=== PATIENT | female | born 1940 | race Caucasian/White ===

== ENCOUNTER 2016-09-17 12:17 | Observation (INO) | payer MEDICARE, OTHER ==
[~2016-09-17 12:17] MED LIST: BABY ASPIRIN81 MG; CALCIUM600 MG; DARVOCET-N 1001 TAB; HYDROCHLOROTH12.5 M1; INDOMETHACIN50 M1 PO; LOTENSIN40 M1 PO; MOBIC7.5 MG; MULTIVITAMIN1 TAB; NORVASC5 MG; TRAMADOL HCL50 M2 PO; TRAMADOL HCL50 MG; VITAMIN C1000 MG; ZOCOR20 MG
[2016-09-17] MEDS ORDERED: NORVASC5 M2 PO (12:40)
[2016-09-17] MEDS ORDERED: ALLOPURINOL300 M1 PO (12:40)
[2016-09-17] MEDS ORDERED: HYDROCHLOROTHIA25 M1 PO (12:40)
[2016-09-17] MEDS ORDERED: FLONASE ALLERG9.9 ML (12:41)
[2016-09-17 13:00] LABS: BASO % 0.2 % (0-2); HCT-HEMATOCRIT 40.9 % (34.0-49.0); HGB-HEMOGLOBIN 14.1 gm/dl (12.0-15.5); IMMATURE GRANULOCYTES ABSOLUTE 0.05 tho/cmm (0-0.03); IMMATURE GRANULOCYTES PERCENT 0.4 % (0-0.3); LYMPH % 8.2 % (20-45); LYMPH ABSOLUTE COUNT 1.1 tho/cmm (0.8-4.5); MCHC MEAN CORPUSCULAR HGB CONC 34.5 % (32.0-36.0); MCV (MEAN CELL VOLUME) 95.8 fl (82.0-96.0); MEAN PLATELET VOLUME 8.9 cmc (9.4-12.4); MONO % 9.4 % (0-12); MONOCYTE ABSOLUTE COUNT 1.2 tho/cmm (0.0-1.2); NEUTROPHIL ABSOLUTE COUNT 10.8 tho/cmm (1.6-8.0); NEUTROPHIL-AUTOMATED 10.8 tho/cmm (1.6-8.0); NEUTROPHILS % 81.8 % (40-80); PLATELET COUNT 410 tho/cmm (150-450); RED BLOOD COUNT 4.27 mil/cmm (4.00-5.20); WHITE BLOOD COUNT 13.2 tho/cmm (4.0-10.0)
[2016-09-17 13:15] LABS: ANION GAP 13 mmol/L (0-20); BLOOD UREA NITROGEN 13 mg/dl (6-24); CALCIUM 9.6 mg/dl (8.5-10.5); CARBON DIOXIDE-VENOUS 29 mmol/L (22-32); CHLORIDE 93 mmol/l (96-110); CREATININE 0.88 mg/dl (0.50-1.10); GLUCOSE 131 mg/dL (70-110); SODIUM 131 mmol/L (135-145); eGFR VALUE FOR BLACK 73 mL/Min
[2016-09-17 13:19] LABS: POTASSIUM 3.8 mmol/L (3.7-5.1)
[2016-09-17] MEDS ORDERED: MULTIVITAMINS1 EAC6 PO (13:35)
[2016-09-17] MEDS ORDERED: HAIR, SKIN & N1 EAC1 PO (13:36)
[2016-09-17 13:45] LABS: PROCALCITONIN 0.11 ng/ml (0.05-0.09)
[2016-09-17 14:38] LABS: URINE BLOOD MODERATE (NEG); URINE GLUCOSE (UA) NEGATIVE (NEG); URINE KETONE MODERATE (NEG); URINE LEUKOCYTE ESTERASE POSITIVE (NEG); URINE NITRITE POSITIVE (NEG); URINE PROTEIN MODERATE (NEG)
[2016-09-17 14:42] LABS: URINE BILIRUBIN MODERATE (NEG)
[2016-09-17 14:44] LABS: URINE APPEARANCE CLEAR; URINE COLOR DARK YELLOW
[2016-09-17 14:52] LABS: URINE BACTERIA 2+
[2016-09-17 14:58] LABS: URINE WBC 20-30 /[HPF] (0-5)
[2016-09-18 05:32] LABS: ANION GAP 13 mmol/L (0-20); BASO % 0.3 % (0-2); BLOOD UREA NITROGEN 10 mg/dl (6-24); CALCIUM 8.5 mg/dl (8.5-10.5); CARBON DIOXIDE-VENOUS 27 mmol/L (22-32); CHLORIDE 101 mmol/l (96-110); EOS % 0.7 % (0-7); EOSINOPHIL ABSOLUTE COUNT 0.1 tho/cmm (0.0-0.7); GLUCOSE 115 mg/dL (70-110); HGB-HEMOGLOBIN 12.6 gm/dl (12.0-15.5); IMMATURE GRANULOCYTES ABSOLUTE 0.05 tho/cmm (0-0.03); IMMATURE GRANULOCYTES PERCENT 0.5 % (0-0.3); LYMPH % 14.5 % (20-45); LYMPH ABSOLUTE COUNT 1.6 tho/cmm (0.8-4.5); MCH (MEAN CORPUSCULAR HGB) 32.6 pg (28.0-32.0); MCHC MEAN CORPUSCULAR HGB CONC 34.1 % (32.0-36.0); MCV (MEAN CELL VOLUME) 95.9 fl (82.0-96.0); MEAN PLATELET VOLUME 8.9 cmc (9.4-12.4); MONO % 13.6 % (0-12); MONOCYTE ABSOLUTE COUNT 1.5 tho/cmm (0.0-1.2); NEUTROPHIL ABSOLUTE COUNT 7.8 tho/cmm (1.6-8.0); NEUTROPHIL-AUTOMATED 7.8 tho/cmm (1.6-8.0); NEUTROPHILS % 70.4 % (40-80); PLATELET COUNT 387 tho/cmm (150-450); POTASSIUM 3.6 mmol/L (3.7-5.1); RED BLOOD COUNT 3.86 mil/cmm (4.00-5.20); RED CELL DISTRIBUTION WIDTH 13.1 % (12.4-16.4); SODIUM 137 mmol/L (135-145); WHITE BLOOD COUNT 11.1 tho/cmm (4.0-10.0); eGFR VALUE FOR BLACK >90 mL/Min
[2016-09-18] MEDS ORDERED: MOTRIN IB200 M1 PO (14:56)
[2016-09-18] MEDS ORDERED: ULTRAM50 M1 PO (14:57)
[2016-09-18] MEDS ORDERED: TYLENOL EXTRA500 M1 PO (14:58)
[2016-09-18] MEDS ORDERED: VALIUM5 M1 PO (14:59)
[2016-09-18] MEDS ORDERED: ROXICODONE5 M2 PO (15:00)
[2016-09-19] MEDS ORDERED: ZANAFLEX4 M2 PO (17:19)
[2016-09-19] MEDS ORDERED: MEDROL4 M1 (17:20)
== END 2016-09-18 16:45 ==
LOC: EDMED 12:17 → EMR2 19:53 → 5WD 19:54
PROVIDERS: Emergency Medicine; ADMIT Hospitalist
DX: M79.1 Myalgia (principal); M62.830 Muscle spasm of back; D72.829 Elevated white blood cell count, unspecified; M48.02 Spinal stenosis, cervical region; M47.812 Spondylosis without myelopathy or radiculopathy, cervical region; I10 Essential (primary) hypertension; E78.5 Hyperlipidemia, unspecified; M10.9 Gout, unspecified; R05 Cough; R42 Dizziness and giddiness; Z90.49 Acquired absence of other specified parts of digestive tract; Z98.890 Other specified postprocedural states
CPT/HCPCS: G0378; G0480; G8978-GP-CJ; G8979-GP-CI; G8980-GP-CJ; G8987-GO-CL; G8988-GO-CL; G8989-GO-CL; J0696; J1170; J1650; J7030; Q9967

== ENCOUNTER 2016-09-19 15:40 | Emergency (ER) | payer MEDICARE, OTHER ==
[~2016-09-19 15:40] MED LIST changes: +ALLOPURINOL300 M1 PO; +FLONASE ALLERG9.9 ML; +HAIR, SKIN & N1 EAC1 PO; +HYDROCHLOROTHIA25 M1 PO; +MOTRIN IB200 M1 PO; +MULTIVITAMINS1 EAC6 PO; +NORVASC5 M2 PO; +ROXICODONE5 M2 PO; +TYLENOL EXTRA500 M1 PO; +ULTRAM50 M1 PO; +VALIUM5 M1 PO
[2016-09-19 17:07] LABS: BASO % 0.2 % (0-2); EOS % 0.9 % (0-7); EOSINOPHIL ABSOLUTE COUNT 0.1 tho/cmm (0.0-0.7); HCT-HEMATOCRIT 35.4 % (34.0-49.0); HGB-HEMOGLOBIN 12.3 gm/dl (12.0-15.5); IMMATURE GRANULOCYTES ABSOLUTE 0.05 tho/cmm (0-0.03); IMMATURE GRANULOCYTES PERCENT 0.5 % (0-0.3); LYMPH % 6.1 % (20-45); LYMPH ABSOLUTE COUNT 0.6 tho/cmm (0.8-4.5); MCH (MEAN CORPUSCULAR HGB) 33.2 pg (28.0-32.0); MCHC MEAN CORPUSCULAR HGB CONC 34.7 % (32.0-36.0); MCV (MEAN CELL VOLUME) 95.4 fl (82.0-96.0); MEAN PLATELET VOLUME 9.1 cmc (9.4-12.4); MONO % 3.5 % (0-12); MONOCYTE ABSOLUTE COUNT 0.3 tho/cmm (0.0-1.2); NEUTROPHIL ABSOLUTE COUNT 8.1 tho/cmm (1.6-8.0); NEUTROPHIL-AUTOMATED 8.1 tho/cmm (1.6-8.0); NEUTROPHILS % 88.8 % (40-80); RED BLOOD COUNT 3.71 mil/cmm (4.00-5.20); RED CELL DISTRIBUTION WIDTH 12.7 % (12.4-16.4); WHITE BLOOD COUNT 9.1 tho/cmm (4.0-10.0)
[2016-09-19] MEDS ORDERED: ZANAFLEX4 M2 PO (17:19)
[2016-09-19] MEDS ORDERED: MEDROL4 M1 (17:20)
[2016-09-19 17:23] LABS: ANION GAP 12 mmol/L (0-20); BLOOD UREA NITROGEN 14 mg/dl (6-24); CALCIUM 8.6 mg/dl (8.5-10.5); CARBON DIOXIDE-VENOUS 27 mmol/L (22-32); CHLORIDE 95 mmol/l (96-110); CREATININE 0.84 mg/dl (0.50-1.10); GLUCOSE 143 mg/dL (70-110); SODIUM 130 mmol/L (135-145); eGFR VALUE FOR BLACK 77 mL/Min
[2016-09-19 17:37] LABS: POTASSIUM 3.7 mmol/L (3.7-5.1)
[2016-09-19 17:46] LABS: PLATELET COUNT 433 tho/cmm (150-450)
== END 2016-09-19 18:01 ==
LOC: EDMED 15:40
PROVIDERS: Emergency Medicine
DX: T42.8X5A Adverse effect of antiparkinsonism drugs and other central muscle-tone depressants, initial encounter (principal); I10 Essential (primary) hypertension; M10.9 Gout, unspecified; Z79.899 Other long term (current) drug therapy